=== PATIENT | female | born 1990 | race Caucasian/White ===

== ENCOUNTER 2025-03-04 15:02 | Emergency (ER) | payer OTHER ==
[~2025-03-04] VITALS: Ht 160 cm; Wt 75.5 kg
[2025-03-04 15:05] VITALS: BP 136/95; PULSE 73; RESP 18; TEMP 99; O2SAT 98
[2025-03-04] MEDS ORDERED: ESCI-8 PO (15:13)
== END 2025-03-04 18:55 | disposition home or self-care (01) ==
LOC: EMS 15:02
DX: S61.302A Unspecified open wound of right middle finger with damage to nail, initial encounter (principal); Z79.899 Other long term (current) drug therapy; W27.4XXA Contact with kitchen utensil, initial encounter; Y93.89 Activity, other specified; Y92.89 Other specified places as the place of occurrence of the external cause; Y99.8 Other external cause status
CPT/HCPCS: 11730; 12001; 99282; 99284; Z7502